=== PATIENT | male | born 1935 | race African-American/Black ===

== ENCOUNTER 2016-07-29 10:09 | Emergency (ER) | payer MEDICARE ==
[~2016-07-29] VITALS: Ht 180.3 cm; Wt 72.1 kg
[2016-07-29] MEDS ORDERED: ASPI81TA2 PO (10:27)
[2016-07-29] MEDS ORDERED: DONE5TAB7 PO (10:27)
[2016-07-29] MEDS ORDERED: LISI-338 PO (10:27)
[2016-07-29] MEDS ORDERED: ATOR10TA60 PO (10:27)
--- NOTE | 2016-07-29 10:36 | PHYS DOC ---
Past Medical History Past Medical History: Dementia, High Cholesterol, Hypertension, Other Additional Past Medical Histor: "polyp syndrome" Past Surgical History: Appendectomy, Other Additional Past Surgical Histo: duodenum surgery Additional Information: occasional cigar Alcohol Use: Occasionally Additional Information: occasional beer Drug Use: None Adult General Chief Complaint Chief Complaint: FLANK PAIN HPI HPI Patient is a 81 year old male who presents with left flank pain since Tuesday, 2 days ago. Attempted aspirin and pain patches over the area without relief. Patient has dementia and is unable to answer if it was an acute onset or gradual in onset. He denies dysuria or changes in bowel movement. It does worsen with movement or twisting. He does not recall an injury, patient presents with his daughter who is unsure if patient had an injury. No fevers, no nausea or vomiting. Patient's had colon surgery in the past, history of colon polyps. Review of Systems Review of Systems Constitutional: Denies fever or chills [] Eyes: Denies change in visual acuity, redness, or eye pain [] HENT: Denies nasal congestion or sore throat [] Respiratory: Denies cough or shortness of breath [] Cardiovascular: No additional information not addressed in HPI [] GI: Denies abdominal pain, nausea, vomiting, bloody stools or diarrhea [] : Denies dysuria or hematuria [] Musculoskeletal: Per history of present illness Integument: Denies rash or skin lesions [] Neurologic: Denies headache, focal weakness or sensory changes [] Current Medications Current Medications Current Medications Medications (Trade) Dose Ordered Sig/Cory Start Time Stop Time Status Last Admin Dose Admin Fentanyl Citrate (Fentanyl 2ml Vial) 50 mcg 1X ONCE 07/29/16 10:45 07/29/16 10:46 DC 07/29/16 10:55 50 MCG Info (Do NOT chart on this entry -- for MONITORING) 1 each PRN DAILY PRN 07/29/16 12:00 07/31/16 11:59 Iohexol (Omnipaque 300 Mg/ml) 75 ml 1X ONCE 07/29/16 11:45 07/29/16 11:50 DC 07/29/16 11:57 75 ML Magnesium Citrate (Citroma) 296 ml 1X ONCE 07/29/16 14:00 07/29/16 14:01 DC 07/29/16 14:00 296 ML Sodium Chloride 1,000 ml @ 1,000 mls/hr 1X ONCE 07/29/16 10:45 07/29/16 11:48 DC 07/29/16 10:52 1,000 MLS/HR Allergies Allergies Allergies Coded Allergies Type Severity Reaction Last Updated Verified No Known Drug Allergies 07/29/16 No Physical Exam Physical Exam Constitutional: Well developed, well nourished, no acute distress, non-toxic appearance. [] HENT: Normocephalic, atraumatic, bilateral external ears normal, oropharynx moist, no oral exudates, nose normal. [] Eyes: PERRLA, EOMI, conjunctiva normal, no discharge. [] Neck: Normal range of motion, no tenderness, supple, no stridor. [] Cardiovascular:Heart rate regular rhythm, no murmur [] Lungs & Thorax: Bilateral breath sounds clear to auscultation [] Abdomen: Bowel sounds normal, soft, no tenderness, no masses, no pulsatile masses. [] Skin: Warm, dry, no erythema, no rash. [] Back: Back appears normal, no erythema or increased warmth, no fluctuance, no point tenderness, patient points to the mid lateral left back as the point of pain, unable to elicit worsening pain with palpation or percussion, patient does appear to be in pain when he attempts to sit up from a laying position or lay back from a sitting position Extremities: No tenderness, no cyanosis, no clubbing, ROM intact, no edema. [] Neurologic: Alert , normal motor function, normal sensory function, no focal deficits noted. [] Current Patient Data Vital Signs Vital Signs Date Time Temp Pulse Resp B/P (MAP) Pulse Ox O2 Delivery O2 Flow Rate FiO2 07/29/16 12:50 55 16 176/84 (114) 98 Room Air 07/29/16 10:16 97.9 97.9 Lab Values Laboratory Tests Test 07/29/16 10:40 07/29/16 11:00 07/29/16 11:15 Urine Collection Type Void Urine Color Yellow Urine Clarity Cloudy Urine pH 5.5 Urine Specific [place] 1.015 Urine Protein Negative mg/dL (NEG-TRACE) Urine Glucose (UA) Negative mg/dL (NEG) Urine Ketones (Stick) Negative mg/dL (NEG) Urine Blood Negative (NEG) Urine Nitrite Negative (NEG) Urine Bilirubin Negative (NEG) Urine Urobilinogen Dipstick 1.0 mg/dL (0.2 mg/dL) Urine Leukocyte Esterase Negative (NEG) Urine RBC 0 /HPF (0-2) Urine WBC Occ /HPF (0-4) Urine Squamous Epithelial Cells Occ /LPF Urine Bacteria 0 /HPF (0-FEW) Urine Mucus Marked /LPF White Blood Count 5.9 x10^3/uL (4.0-11.0) Red Blood Count 4.88 x10^6/uL (4.30-5.70) Hemoglobin 15.0 g/dL (13.0-17.5) Hematocrit 43.7 % (39.0-53.0) Mean Corpuscular Volume 90 fL (79-100) Mean Corpuscular Hemoglobin 31 pg (25-35) Mean Corpuscular Hemoglobin Concent 34 g/dL (31-37) Red Cell Distribution Width 15.5 % (11.5-14.5) H Platelet Count 230 x10^3/uL (140-400) Neutrophils (%) (Auto) 55 % (31-73) Lymphocytes (%) (Auto) 28 % (24-48) Monocytes (%) (Auto) 15 % (0-9) H Eosinophils (%) (Auto) 2 % (0-3) Basophils (%) (Auto) 1 % (0-3) Neutrophils # (Auto) 3.3 x10^3uL (1.8-7.7) Lymphocytes # (Auto) 1.7 x10^3/uL (1.0-4.8) Monocytes # (Auto) 0.9 x10^3/uL (0.0-1.1) Eosinophils # (Auto) 0.1 x10^3/uL (0.0-0.7) Basophils # (Auto) 0.0 x10^3/uL (0.0-0.2) Sodium Level 140 mmol/L (136-145) Potassium Level 4.4 mmol/L (3.5-5.1) Chloride Level 105 mmol/L (98-107) Carbon Dioxide Level 32 mmol/L (21-32) Anion Gap 3 (6-14) L 17 mmol/L (6-14) H Blood Urea Nitrogen 13 mg/dL (8-26) Creatinine 1.4 mg/dL (0.7-1.3) H Estimated GFR (Cockcroft-Gault) 59.2 BUN/Creatinine Ratio 9 (6-20) Glucose Level 87 mg/dL (70-99) 84 mg/dL (70-99) Calcium Level 8.8 mg/dL (8.5-10.1) Total Bilirubin 0.6 mg/dL (0.2-1.0) Aspartate Amino Transferase (AST) 16 U/L (15-37) Alanine Aminotransferase (ALT) 18 U/L (16-63) Alkaline Phosphatase 69 U/L (46-116) Total Protein 7.0 g/dL (6.4-8.2) Albumin 3.3 g/dL (3.4-5.0) L Albumin/Globulin Ratio 0.9 (1.0-1.7) L POC Hemoglobin 16.0 g/dL (14-18) POC Hematocrit 47 % (37-52) POC Sodium 141 mmol/L (135-145) POC Potassium 4.5 mmol/L (3.5-5.0) POC Chloride 102 mmol/L (98-110) POC Total CO2 27 mmol/L (23-32) POC Blood Urea Nitrogen 12 mg/dL (8-26) POC Creatinine 1.2 mg/dL (0.5-1.4) POC Ionized Calcium (Raymundo) 1.13 mmol/L (1.13-1.32) Laboratory Tests 07/29/16 11:00 Laboratory Tests 07/29/16 11:00 07/29/16 11:15 EKG EKG [] Radiology/Procedures Radiology/Procedures CXt: Impression: 1. Noncalcified 4.7 mm left lower lobe nodule adjacent to the fissure . Correlate with patient's risk factors and follow-up according to [employer] society recommendation Recommendations for Follow-up and Management of Indeterminate Lung Nodules Detected Incidentally on Nonscreening CT Adapted from the Fleischner Society Statement on CT of Small Pulmonary Nodules (Radiology 2005;237:395-400) If nodule < 4 mm and low risk patient no follow up needed. High risk patient follow up CT at 12 months if unchanged, no follow up. If nodule 4-[address] at 6, 12 and 24 months if no change, further follow up 1. If nodule > [address], PET and/or biopsy, OR watchful waiting: follow up CT at 3, 9 & 24 months Notes: diameter = average width; high risk is defined as a history of smoking or other know risk factors for lung cancer; low risk is defined as minimal or absent history of smoking or other known risk factors; caveat: nodules with a ground glass component may require longer follow up to exclude indolent adenocarcinoma. End impression CT abdomen findings: The lung bases appear essentially clear. Visualized heart is normal. The liver, spleen ,gall bladder and pancreas appears unremarkable. Tiny subcentimeter probable cysts. Both adrenal glands and bilateral kidneys appear normal with symmetric excretion of contrast via both kidneys. There is a 4.3 mm nonobstructing calculus in the left inferior renal pole. The small bowel loops appear nondilated and unremarkable. There is no retroperitoneal lymphadenopathy or mass lesions. No bowel related inflammatory stranding is noted. Appendix is not clearly identified. No obvious stranding is seen in the pericecal region. Diffuse scattered stool throughout the colon. CT pelvis findings: The pelvic bowel loops are nondilated and unremarkable. The urinary bladder is well distended and normal . Prostate gland is enlarged. Seminal vesicles and rectum appear normal. Interrogation of bone windows demonstrates no obvious bony abnormality. Sagittal and coronal reformatted images were obtained and reviewed which demonstrate no additional findings. Impression abdomen and pelvis : 1. A 4.3 mm nonobstructing left inferior renal pole calculus. 2. Diffuse scattered stool throughout the colon. Correlate clinically for constipation. [] Course & Med Decision Making Course & Med Decision Making Pertinent Labs and Imaging studies reviewed. (See chart for details) Patient given IV fentanyl, IV fluids, urinalysis and lab work obtained. Pain well controlled. No significant abnormalities found on ED workup. Pt given Mag citrate to take at home, explained other findings on CT scan and need for f/u . Will dc with lidoderm patches and need to f/u with PCP. Dragon Disclaimer Dragon Disclaimer This electronic medical record was generated, in whole or in part, using a voice recognition dictation system. Departure Departure Impression: Primary Impression: Constipation Additional Impression: Back pain Disposition: HOME, SELF-CARE Condition: STABLE Scripts Lidocaine (LIDODERM) 700 Mg Adh..patch 1 PATCH TP DAILY, #12 PATCH 0 Refills apply to affected area for 12 hours on, then 12 hours off. Prov: SHAYE MARCUM MD 07/29/16 Problem Qualifiers SHAYE MARCUM MD July 29, 2016 10:35
[2016-07-29] MEDS ORDERED: fentaNYL PF VIAL 100 MCG/2 ML VIAL IV ONE (10:45)
[2016-07-29] MEDS ORDERED: IV NORMAL SALINE 1000ML BAG 1,000 ML IV ONE (10:45)
[2016-07-29 10:54] LABS: BILIRUBIN,URINE NEGATIVE (NEG); GLUCOSE,URINE NEGATIVE (NEG); NITRITE,URINE NEGATIVE (NEG); PH,URINE 5.5; PROTEIN,URINE NEGATIVE (NEG-TRACE)
[2016-07-29 11:10] LABS: BACTERIA,URINE 0 /HPF (0-FEW); RBC,URINE 0 /HPF (0-2); SQUAMOUS EPITHELIAL CELL,UR OCC /LPF; WBC,URINE OCC /HPF (0-4)
[2016-07-29 11:17] LABS: BASO % 1 % (0-3); EOS % 2 % (0-3); HEMATOCRIT 43.7 % (39.0-53.0); LYMPH # 1.7 x10^3/uL (1.0-4.8); LYMPH % 28 % (24-48); MEAN CORPUSCULAR HEMOGLOBIN 31 pg (25-35); MEAN CORPUSCULAR HGB CONC 34 g/dL (31-37); MEAN CORPUSCULAR VOLUME 90 fL (79-100); MONO % 15 % (0-9); NEUT % 55 % (31-73); PLATELET COUNT 230 x10^3/uL (140-400); RED BLOOD COUNT 4.88 x10^6/uL (4.30-5.70); RED CELL DISTRIBUTION WIDTH 15.5 % (11.5-14.5); WHITE BLOOD COUNT 5.9 x10^3/uL (4.0-11.0)
[2016-07-29 11:19] LABS: POTASSIUM ISTAT 4.5 mmol/L (3.5-5.0)
[2016-07-29 11:28] LABS: CALCIUM 8.8 mg/dL (8.5-10.1); CREATININE 1.4 mg/dL (0.7-1.3); GFR 59.2; POTASSIUM 4.4 mmol/L (3.5-5.1)
[2016-07-29 11:33] LABS: ALBUMIN 3.3 g/dL (3.4-5.0); ALBUMIN/GLOBULIN RATIO 0.9 (1.0-1.7); TOTAL BILIRUBIN 0.6 mg/dL (0.2-1.0)
[2016-07-29] MEDS ORDERED: IOHEXOL 300 MG/ML 75 ML VIAL IV ONE (11:45)
[2016-07-29] MEDS ORDERED: CONTRAST GIVEN MC PRN (12:00)
[2016-07-29 12:50] VITALS: BP 176/84
--- NOTE | 2016-07-29 13:05 | RAD ---
Exam performed :CT scan chest , abdomen and pelvis with contrast. Indication: Left back pain Date of exam: 07/29/16. Comparison;none available Technique: Helical sections of the chest , abdomen and pelvis were obtained during Intravenous administration of 75 cc of Omnipaque 300. Sagittal and coronal reformatted images were obtained and reviewed. CT chest findings : The heart, hilar and mediastinal structures appear unremarkable. Intrathoracic great vessels appear normal in course and caliber. Evidence of pathologic lymphadenopathy is not identified. There is a 4.7 mm nodule in the left lower lobe adjacent to the fissure. No pleural fluid or pleural thickening is identified. No pleural calcification is noted. Structures at the thoracic inlet including both lobes of the thyroid gland appear normal. No dominant lymphadenopathy is seen in the neck or axilla. As visualized, the osseous structures appear unremarkable. Limited evaluation of the upper abdominal structures is essentially unremarkable. Mild spondylotic changes Impression: 1. Noncalcified 4.7 mm left lower lobe nodule adjacent to the fissure . Correlate with patient's risk factors and follow-up according to [employer]ant[employer] society recommendation Recommendations for Follow-up and Management of Indeterminate Lung Nodules Detected Incidentally on Nonscreening CT Adapted from the Fleischner Society Statement on CT of Small Pulmonary Nodules (Radiology 2005;237:395-400) If nodule < 4 mm and low risk patient no follow up needed. High risk patient follow up CT at 12 months if unchanged, no follow up. If nodule 4-[address] at 6, 12 and 24 months if no change, further follow up 1. If nodule > [address], PET and/or biopsy, OR watchful waiting: follow up CT at 3, 9 & 24 months Notes: diameter = average width; high risk is defined as a history of smoking or other know risk factors for lung cancer; low risk is defined as minimal or absent history of smoking or other known risk factors; caveat: nodules with a ground glass component may require longer follow up to exclude indolent adenocarcinoma. End impression CT abdomen findings: The lung bases appear essentially clear. Visualized heart is normal. The liver, spleen ,gall bladder and pancreas appears unremarkable. Tiny subcentimeter probable cysts. Both adrenal glands and bilateral kidneys appear normal with symmetric excretion of contrast via both kidneys. There is a 4.3 mm nonobstructing calculus in the left inferior renal pole. The small bowel loops appear nondilated and unremarkable. There is no retroperitoneal lymphadenopathy or mass lesions. No bowel related inflammatory stranding is noted. Appendix is not clearly identified. No obvious stranding is seen in the pericecal region. Diffuse scattered stool throughout the colon. CT pelvis findings: The pelvic bowel loops are nondilated and unremarkable. The urinary bladder is well distended and normal . Prostate gland is enlarged. Seminal vesicles and rectum appear normal. Interrogation of bone windows demonstrates no obvious bony abnormality. Sagittal and coronal reformatted images were obtained and reviewed which demonstrate no additional findings. Impression abdomen and pelvis : 1. A 4.3 mm nonobstructing left inferior renal pole calculus. 2. Diffuse scattered stool throughout the colon. Correlate clinically for constipation. PQRS Compliance Statement: One or more of the following individualized dose reduction techniques were utilized for this examination: 1. Automated exposure control 2. Adjustment of the mA and/or kV according to patient size 3. Use of iterative reconstruction technique
[2016-07-29] MEDS ORDERED: MAGNESIUM CITRATE 296 ML SOLUTION. PO ONE (14:00)
[2016-07-29] MEDS ORDERED: LIDO700A4 TP (14:01)
== END 2016-07-29 14:15 | disposition home or self-care (01) ==
LOC: ER 10:09
DX: K59.00 Constipation, unspecified (principal); M54.9 Dorsalgia, unspecified; E78.00 Pure hypercholesterolemia, unspecified; I10 Essential (primary) hypertension; F17.210 Nicotine dependence, cigarettes, uncomplicated; Z90.49 Acquired absence of other specified parts of digestive tract
CPT/HCPCS: 36415; 71260; 74177; 80047; 80053; 81001; 85027; 96361; 96374; 99285; J3010; J7030; Q9967

== ENCOUNTER 2016-08-05 18:57 | Emergency (ER) | payer MEDICARE ==
[~2016-08-05] VITALS: Ht 180.3 cm; Wt 77.1 kg
[~2016-08-05 18:57] MED LIST: ASPI81TA2 PO; ATOR10TA60 PO; DONE5TAB7 PO; LIDO700A4 TP; LISI-338 PO
[2016-08-05] MEDS ORDERED: DIPHTH,PERTUSS(ACELL),TET TOX 0.5 ML DISP.SYRIN. VAX IM ONE (19:15)
[2016-08-05] MEDS ORDERED: ACETAMINOPHEN 500 MG TABLET PO ONE (19:15)
[2016-08-05] MEDS ORDERED: NEOMY/BACITR/POLYMYXIN OINT PACKET. TP ONE (19:15)
--- NOTE | 2016-08-05 19:31 | RAD ---
PROCEDURE CT head without contrast. HISTORY Fall, hit head TECHNIQUE Noncontrast CT imaging was performed of the head. Exposure: One or more of the following individualized dose reduction techniques were utilized for this exam: 1. Automated exposure control. 2. Adjustment of the mA and/or kV according to patient size. 3. Use of iterative reconstruction technique. COMPARISON None FINDINGS There is some motion degradation. No acute intracranial hemorrhage is identified. There is no intra-axial, midline, extra-axial fluid collection. There is mild ventriculomegaly although there is mild generalized supratentorial atrophy. There is mild ill-defined low-density of the supratentorial white matter. No acute calvarial abnormality is identified. Mastoid cells and visualized paranasal are aerated. There is posterior parasagittal parietal region scalp soft tissue swelling. IMPRESSION 1. No acute intracranial abnormality is identified. 2. There is mild generalized supratentorial atrophy. Mild ill-defined low-density of the supratentorial white matter is nonspecific, most commonly due to chronic microvascular ischemic disease in a patient this age. Electronically signed by: Dusty Padron MD (August 05, 2016 19:29:37)
[2016-08-05 19:37] VITALS: BP 147/80
[2016-08-05] MEDS ORDERED: CYCL10TA2 PO (20:58)
--- NOTE | 2016-08-05 20:59 | PHYS DOC ---
Past Medical History Past Medical History: Dementia, High Cholesterol, Hypertension, Other Additional Past Medical Histor: "polyp syndrome" Past Surgical History: Appendectomy, Other Additional Past Surgical Histo: duodenum surgery Alcohol Use: None Drug Use: None Adult General Chief Complaint Chief Complaint: MECHANICAL FALL HPI HPI Patient is a 81 year old male with history of dementia, high cholesterol, hypertension who presents status post fall. Patient states he was walking down 2 concrete steps when he tripped on himself and fell. Patient denies any loss of consciousness. He states he hit his left shoulder and left lateral head on the wall. Patient is in the ED with the daughter who is doing most of the talking. Patient himself is complaining of left shoulder pain and left lateral rib pain. Review of Systems Review of Systems Constitutional: Denies fever or chills [] Eyes: Denies change in visual acuity, redness, or eye pain [] HENT: Denies nasal congestion or sore throat [] Respiratory: Left rib pain Cardiovascular: No additional information not addressed in HPI [] GI: Denies abdominal pain, nausea, vomiting, bloody stools or diarrhea [] : Denies dysuria or hematuria [] Musculoskeletal: shoulder contusion and pain Integument: Denies rash or skin lesions [] Neurologic: head contusion Endocrine: Denies polyuria or polydipsia [] Current Medications Current Medications Current Medications Medications (Trade) Dose Ordered Sig/Cory Start Time Stop Time Status Last Admin Dose Admin Acetaminophen (Tylenol) 500 mg 1X ONCE 08/05/16 19:15 08/05/16 19:16 DC 08/05/16 19:38 500 MG Diphtheria/ Tetanus/Acell Pertussis (Boostrix) 0.5 ml ONCE ONCE 08/05/16 19:15 08/05/16 19:16 DC 08/05/16 19:43 0.5 ML Neomycin/ Polymyxin/ Bacitracin (Triple Antibiotic Ointment) 1 pkt 1X ONCE 08/05/16 19:15 08/05/16 19:16 DC 08/05/16 19:38 1 PKT Allergies Allergies Allergies Coded Allergies Type Severity Reaction Last Updated Verified No Known Drug Allergies 07/29/16 No Physical Exam Physical Exam Constitutional: Well developed, well nourished, no acute distress, non-toxic appearance. [] HENT: Normocephalic, atraumatic, bilateral external ears normal, oropharynx moist, no oral exudates, nose normal. [] Eyes: PERRLA, EOMI, conjunctiva normal, no discharge. [] Neck: Normal range of motion, no tenderness, supple, no stridor. [] Cardiovascular:Heart rate regular rhythm, no murmur [] Lungs & Thorax: Bilateral breath sounds clear to auscultation tenderness on palpation of the left lateral ribs mid axillary line approximately ribs 5,6 and 7. Abdomen: Bowel sounds normal, soft, no tenderness, no masses, no pulsatile masses. [] Skin: Warm, dry, no erythema, no rash. [] Back: No tenderness, no CVA tenderness. [] Extremities: Left shoulder with bruising on the ACM joint. Tenderness on palpation of the left shoulder ACM joint and anterior aspect of the shoulder. Full range of motion to the left shoulder. Patient able to abduct and abduct the left shoulder with no difficulty. Adequate radial, ulnar, and median sensation to the left forearm. Adequate plantar flexion and this affliction the left forearm. +2 left radial pulse. Cap refill less than 2 seconds and left upper extremity. Neurologic: Alert and oriented X 2, normal motor function, normal sensory function, no focal deficits noted. Cranial nerves II through XII intact Psychologic: Affect normal, judgement normal, mood normal. [] Current Patient Data Vital Signs Vital Signs Date Time Temp Pulse Resp B/P (MAP) Pulse Ox O2 Delivery O2 Flow Rate FiO2 08/05/16 19:37 65 16 147/80 (102) 97 Room Air 08/05/16 19:13 98.6 98.6 EKG EKG [] Radiology/Procedures Radiology/Procedures [] Course & Med Decision Making Course & Med Decision Making Pertinent Labs and Imaging studies reviewed. (See chart for details) Patient is in the ED with complaints of left shoulder pain, left lateral rib pain, after falling. CT of the head interpreted by radiologist is negative for any acute findings. Left shoulder x-rays interpreted by Dr. Jarquin are negative for any acute findings. Left lateral rib x-ray/PA chest interpreted by Dr. Jarquin, questionable fracture of ribs 5 and 6. Patient was provided an incentive spirometry in the ED. Encouraged to take deep breaths 10 times every hour. Discharged with instructions to take Tylenol as needed for pain. Given a prescription for cyclobenzaprine. Follow-up with PCP in the course of this week or next week. Provided for vomiting as well as patient return precautions. Dragon Disclaimer Dragon Disclaimer This electronic medical record was generated, in whole or in part, using a voice recognition dictation system. Departure Departure Impression: Primary Impression: Contusion of shoulder, left Additional Impressions: Left rib fracture Head contusion Fall down steps Disposition: 01 HOME, SELF-CARE Condition: STABLE Referrals: DELONTE CRISTINA MD (PCP) follow up with your doctor in one week Patient Instructions: Contusion, Fall Prevention and Home Safety, Rib Fracture Additional Instructions: You were seen for left shoulder contusion, scalp contusion, and possible rib fractures after falling. We highly recommend you use the incentive spirometry provided to take deep breaths 10 times every hour. Take Tylenol as needed for pain and muscle relaxer provided. Come back to the ED symptoms worsen. Follow- up with your doctor in one week. Scripts Cyclobenzaprine Hcl (CYCLOBENZAPRINE HCL) 10 Mg Tablet 1 TAB PO TID, #30 TAB Prov: CAN MIJARES APRN 08/05/16 Problem Qualifiers Additional Impressions: Left rib fracture Encounter type: initial encounter Rib fracture type: multiple ribs Fracture type: closed Qualified Codes: S22.42XA - Multiple fractures of ribs , left side, initial encounter for closed fracture Head contusion Encounter type: initial encounter Contusion of head detail: scalp Qualified Codes: S00.03XA - Contusion of scalp, initial encounter Fall down steps Encounter type: initial encounter Qualified Codes: W10.8XXA - Fall (on) ( from) other stairs and steps, initial encounter CAN MIJARES APRN August 05, 2016 20:58
--- NOTE | 2016-08-06 08:37 | RAD ---
Examination: 2 views of the left shoulder History: History of fall, pain. Comparison: None available Findings The humeral head is within the glenoid. There is no acute fracture identified. Mild degenerative changes identified in the acromioclavicular joint. Small inferior osteophyte formation identified in the distal clavicle. Impression: Mild degenerative changes in the acromioclavicular joint. No acute osseous findings.
--- NOTE | 2016-08-06 08:37 | RAD ---
Left RIBS with chest, 3 views, 08/05/2016: History: Fall, pain No left rib fracture is identified. There is no evidence of underlying pneumothorax, hemothorax or pulmonary infiltrate. The heart size is normal. There is mild tortuosity of the thoracic aorta. Moderate spurring is present in the thoracic spine. IMPRESSION: No left rib abnormality is detected.
== END 2016-08-05 21:34 | disposition home or self-care (01) ==
LOC: ER 18:57
DX: S22.42XA Multiple fractures of ribs, left side, initial encounter for closed fracture (principal); S00.03XA Contusion of scalp, initial encounter; S40.012A Contusion of left shoulder, initial encounter; F03.90 Unspecified dementia, unspecified severity, without behavioral disturbance, psychotic disturbance, mood disturbance, and anxiety; E78.00 Pure hypercholesterolemia, unspecified; I10 Essential (primary) hypertension; W10.9XXA Fall (on) (from) unspecified stairs and steps, initial encounter; Y93.89 Activity, other specified; Y92.89 Other specified places as the place of occurrence of the external cause; Y99.8 Other external cause status
CPT/HCPCS: 70450; 71101; 73030; 90471; 90715; 99284-25

== ENCOUNTER 2017-03-17 15:14 | Emergency (ER) | payer MEDICARE ==
[2017-03-17 15:28] LABS: ADD MAN DIFF? NO
[2017-03-17 15:31] LABS: BASO # 0.1 x10^3/uL (0.0-0.2); BASO % 1 % (0-3); EOS % 2 % (0-3); HEMATOCRIT 46.3 % (39.0-53.0); HEMOGLOBIN 15.2 g/dL (13.0-17.5); LYMPH # 1.8 x10^3/uL (1.0-4.8); LYMPH % 33 % (24-48); MEAN CORPUSCULAR HEMOGLOBIN 30 pg (25-35); MEAN CORPUSCULAR HGB CONC 33 g/dL (31-37); MEAN CORPUSCULAR VOLUME 91 fL (79-100); MONO % 11 % (0-9); NEUT % 53 % (31-73); PLATELET COUNT 230 x10^3/uL (140-400); RED CELL DISTRIBUTION WIDTH 16.2 % (11.5-14.5); WHITE BLOOD COUNT 5.4 x10^3/uL (4.0-11.0)
[2017-03-17 15:48] LABS: ANION GAP 9 (6-14); BLOOD UREA NITROGEN 18 mg/dL (8-26); BUN/CREATININE RATIO 13 (6-20); CALCIUM 8.1 mg/dL (8.5-10.1); CARBON DIOXIDE 27 mmol/L (21-32); CHLORIDE 107 mmol/L (98-107); CREATININE 1.4 mg/dL (0.7-1.3); GFR 59.2; GLUCOSE 85 mg/dL (70-99); POTASSIUM 4.1 mmol/L (3.5-5.1); SODIUM 143 mmol/L (136-145)
[2017-03-17 15:49] LABS: ETHANOL < 10 mg/dL (0-10)
[2017-03-17 15:53] LABS: ALBUMIN 3.5 g/dL (3.4-5.0); ALK PHOS 80 U/L (46-116); ALT (SGPT) 19 U/L (16-63); AST (SGOT) 17 U/L (15-37); TOTAL BILIRUBIN 0.3 mg/dL (0.2-1.0); TOTAL PROTEIN 7.1 g/dL (6.4-8.2)
[2017-03-17 15:54] LABS: BILIRUBIN,URINE NEGATIVE (NEG); GLUCOSE,URINE NEGATIVE (NEG); NITRITE,URINE NEGATIVE (NEG); PROTEIN,URINE NEGATIVE (NEG-TRACE)
[2017-03-17 16:20] LABS: BACTERIA,URINE 0 /HPF (0-FEW); RBC,URINE 0 /HPF (0-2); SQUAMOUS EPITHELIAL CELL,UR OCC /LPF; WBC,URINE OCC /HPF (0-4)
== END 2017-03-17 17:20 | disposition home or self-care (01) ==
LOC: ER 15:14
DX: R41.0 Disorientation, unspecified (principal); F03.90 Unspecified dementia, unspecified severity, without behavioral disturbance, psychotic disturbance, mood disturbance, and anxiety; E78.00 Pure hypercholesterolemia, unspecified; I10 Essential (primary) hypertension
CPT/HCPCS: 36415; 80053; 81001; 85025; 87086; 99284; G0480

== ENCOUNTER 2017-07-11 22:41 | Emergency (ER) | payer OTHER, MEDICARE | END 2017-07-12 00:05 | disposition home or self-care (01) | LOC: ER 07-12 00:05 | DX: F03.90 Unspecified dementia, unspecified severity, without behavioral disturbance, psychotic disturbance, mood disturbance, and anxiety (principal); E78.00 Pure hypercholesterolemia, unspecified; I10 Essential (primary) hypertension | CPT/HCPCS: 99284 ==